=== PATIENT | female | born 1950 | race Caucasian/White ===

== ENCOUNTER 2016-07-10 10:16 | Emergency (ER) | payer BC ==
[~2016-07-10 10:16] MED LIST: LIPITOR10 MG; NORCO 5/325 TAB1 TAB PO
[2016-07-10] MEDS ORDERED: ATORVASTATIN CA10 M1 PO (11:20)
[2016-07-10] MEDS ORDERED: VITAMIN D250000 UNI1 PO (11:21)
[2016-07-10] MEDS ORDERED: JUBLIA4 ML TP (11:23)
[2016-07-10] MEDS ORDERED: PRESERVISION A1 EAC5 PO (12:48)
[2016-07-10 13:25] LABS: URINE BILIRUBIN NEGATIVE (NEG); URINE BLOOD NEGATIVE (NEG); URINE GLUCOSE (UA) NEGATIVE (NEG); URINE KETONE NEGATIVE (NEG); URINE LEUKOCYTE ESTERASE POSITIVE (NEG); URINE NITRITE NEGATIVE (NEG); URINE PROTEIN NEGATIVE (NEG)
[2016-07-10 13:33] LABS: URINE APPEARANCE HAZY; URINE COLOR YELLOW
[2016-07-10 13:35] LABS: BASO % 0.4 % (0-2); EOS % 1.5 % (0-7); EOSINOPHIL ABSOLUTE COUNT 0.1 tho/cmm (0.0-0.7); HCT-HEMATOCRIT 43.5 % (34.0-49.0); HGB-HEMOGLOBIN 14.9 gm/dl (12.0-15.5); IMMATURE GRANULOCYTES ABSOLUTE 0.01 tho/cmm (0-0.03); IMMATURE GRANULOCYTES PERCENT 0.1 % (0-0.3); LYMPH % 14.8 % (20-45); LYMPH ABSOLUTE COUNT 1.3 tho/cmm (0.8-4.5); MCH (MEAN CORPUSCULAR HGB) 30.9 pg (28.0-32.0); MCHC MEAN CORPUSCULAR HGB CONC 34.3 % (32.0-36.0); MCV (MEAN CELL VOLUME) 90.2 fl (82.0-96.0); MONO % 7.2 % (0-12); MONOCYTE ABSOLUTE COUNT 0.6 tho/cmm (0.0-1.2); NEUTROPHIL ABSOLUTE COUNT 6.8 tho/cmm (1.6-8.0); NEUTROPHIL-AUTOMATED 6.8 tho/cmm (1.6-8.0); PLATELET COUNT 269 tho/cmm (150-450); RED BLOOD COUNT 4.82 mil/cmm (4.00-5.20); RED CELL DISTRIBUTION WIDTH 13.4 % (12.4-16.4); WHITE BLOOD COUNT 8.9 tho/cmm (4.0-10.0)
[2016-07-10 13:49] LABS: ALBUMIN 3.5 g/dl (3.5-5.0); ALKALINE PHOSPHATASE 109 U/L (33-138); ALT/SGPT 24 U/L (12-78); ANION GAP 13 mmol/L (0-20); AST/SGOT 22 U/L (10-40); BILIRUBIN,TOTAL 0.6 mg/dl (0-1.5); BLOOD UREA NITROGEN 17 mg/dl (6-24); CALCIUM 9.5 mg/dl (8.5-10.5); CARBON DIOXIDE-VENOUS 23 mmol/L (22-32); CHLORIDE 110 mmol/l (96-110); CREATININE 0.81 mg/dl (0.50-1.10); GLUCOSE 105 mg/dL (70-110); SODIUM 142 mmol/L (135-145); eGFR VALUE FOR BLACK 89 mL/Min
[2016-07-10 13:55] LABS: URINE WBC 40-60 /[HPF] (0-5)
[2016-07-10] MEDS ORDERED: MACROBID 100 M100 M1 PO (14:36)
== END 2016-07-10 14:42 ==
LOC: EDMED 10:16
PROVIDERS: Nurse Practitioner Family
DX: N39.0 Urinary tract infection, site not specified (principal); R53.1 Weakness; E78.5 Hyperlipidemia, unspecified; Z88.2 Allergy status to sulfonamides